=== PATIENT | male | born 2000 | race Caucasian/White ===

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

== ENCOUNTER 2018-02-17 18:43 | Emergency (ER) | payer OTHER ==
[2018-02-17] MEDS: IBUPROFEN 600 MG TAB PO (21:17)
[2018-02-17] MEDS: DIPHTH/TET/ACEL PERTUSS (ADULT) 0.5 ML VIAL IM* (21:19)
== END 2018-02-17 22:20 | disposition home or self-care (01) ==
LOC: FTE 18:43
DX: S91.331A Puncture wound without foreign body, right foot, initial encounter (principal); W45.0XXA Nail entering through skin, initial encounter; Y92.9 Unspecified place or not applicable; Z23 Encounter for immunization
CPT/HCPCS: 90471; 90715; 99283-25